=== PATIENT | female | born 1935 | race Caucasian/White ===

== ENCOUNTER 2018-02-23 22:44 | Emergency (ER) | payer MEDICARE ==
[~2018-02-23] VITALS: Ht 177.8 cm; Wt 59.0 kg
[2018-02-23] MEDS ORDERED: ATORVASTATIN CA20 MG ORAL (22:50)
[2018-02-23] MEDS ORDERED: CARVEDILOL3.125 MG ORAL (22:50)
[2018-02-23 23:06] VITALS: BP 140/59
--- NOTE | 2018-02-23 23:06 | Emergency Room Report ---
History of Present Illness General Chief Complaint: Multiple Trauma/Fall Source: Patient Present Illness [facility] This is an 82-year-old female with history of high blood pressure and hyperlipidemia. She presents with chief complaint of right knee/leg pain. Onset was acute. She tripped on a doggie blanket at the end of the bed around 2:30 PM this afternoon. She dragged herself into bed and been in bed since then. Complaining of pain to the back of the knee. Unable to bear weight. Pain is 8 out of 10 when she try to move. Better when she rest. No head injury. No loss of consciousness. Denies any other complaint. Pain is sharp. No radiation. Allergies: Coded Allergies: No Known Allergies (Unverified , 02/23/18) Patient History Past Medical History: see triage record, old chart reviewed, HTN Pertinent Family History: none Social History: Denies: smoking Last Menstrual Period: SHAMIKA Now: No Immunizations: other Reviewed Nursing Documentation: PMH: Agreed; PSxH: Agreed Nursing Documentation-PMH Past Medical History: No Stated History Hx Hypertension: Yes - HTN, HIGH MARIA T Review of Systems Eye: Denies: eye pain, blurred vision ENT: Denies: ear pain, nose congestion, throat swelling Respiratory: Denies: cough, shortness of breath Cardiovascular: Denies: chest pain, palpitations Gastrointestinal: Denies: abdominal pain, diarrhea, nausea, vomiting Musculoskeletal: Reports: joint pain; Denies: back pain Skin: Denies: rash Neurological: Denies: headache, numbness Endocrine: Denies: increased thirst, increased urine Hematologic/Lymphatic: Denies: easy bruising All Other Systems: negative except mentioned in HPI Physical Exam Vital Signs Date Time Temp Pulse Resp B/P (MAP) Pulse Ox O2 Delivery O2 Flow Rate FiO2 02/23/18 22:45 98.1 71 18 136/98 98 Room Air vitals normal Sp02 EP Interpretation: reviewed, normal General Appearance: well appearing, no apparent distress, alert Head: normocephalic, atraumatic Eyes: bilateral eye PERRL, bilateral eye EOMI ENT: hearing grossly normal, normal pharynx Neck: full range of motion, supple, no meningismus Respiratory: chest non-tender, lungs clear, normal breath sounds Cardiovascular #1: regular rate, rhythm, no murmur Gastrointestinal: normal bowel sounds, non tender, no mass, no organomegaly, no bruit, non-distended Musculoskeletal: back normal, other - Right knee: She has tenderness over the popliteal fossa area And distal femur. Knee is stable. Full range of motion. No deformity. Sensation normal. Neurologic: alert, oriented x3 Psychiatric: mood/affect normal Skin: warm/dry Medical Decision Making Diagnostic Impression: Primary Impression: Ambulatory dysfunction Additional Impressions: Leg pain, right Knee pain, right Qualified Codes: M25.561 - Pain in right knee Fall Qualified Codes: W19.XXXA - Unspecified fall, initial encounter ER Course Patient present with a mechanical fall. She has right leg pain over the femur and knee area. No fracture or dislocation. Most likely a sprain/soft tissue injury. No obvious muscle tear. Patient unable to bear weight and walk. Her daughter said that she cannot use crutches. She has a walker at home. Because she cannot bear weight and ambulate, will transfer to [facility] for physical therapy evaluation and possible skilled nursing placement versus wheelchair assistance. [facility] Results Impression labs unremarkable Other X-Ray Diagnostic Results Other X-Ray Diagnostic Results : X-Ray ordered: Right knee x-rays # of Views/Limited Vs Complete: 3 View Indication: Pain EP Interpretation: Yes Interpretation: no dislocation, no soft tissue swelling, no fractures, other - Degenerative changes Impression: No acute disease Electronically Signed by: Julian Monroe MD CT/MRI/US Diagnostic Results CT/MRI/US Diagnostic Results : Imaging Test Ordered: CT right femur Impression read by radiologist. No acute process. Last Vital Signs Date Time Temp Pulse Resp B/P (MAP) Pulse Ox O2 Delivery O2 Flow Rate FiO2 02/23/18 22:45 98.1 71 18 136/98 98 Room Air Status: improved Disposition: ER [facility] Condition: Stable Julian Monroe MD Feb 23, 2018 23:06
--- NOTE | 2018-02-23 23:38 | Diagnostic Imaging Report ---
EXAM: XR Right Knee, 2 views. CLINICAL HISTORY: TRAUMA COMPARISON: No relevant prior studies available. IMPRESSION: 2 views. Notch view and lateral view of the right knee. No acute fracture or dislocation is identified. Osteopenia. DJD. Vascular calcifications.
[2018-02-23] MEDS: Morphine Sulfate 2mg/ml Inj IVP ONE (23:59)
[2018-02-24 00:02] LABS: BASOPHILS % (AUTO) 0.8 % (0.0-2.0); EOSINOPHILS % (AUTO) 0.2 % (0.0-3.0); HEMATOCRIT 37.2 % (37.0-47.0); HEMOGLOBIN 13.6 G/DL (12.0-16.0); LYMPHOCYTES % (AUTO) 7.4 % (20.0-45.0); MEAN CORPUSCULAR VOLUME 101 FL (80-99); MONOCYTES % (AUTO) 9.1 % (1.0-10.0); NEUTROPHILS % (AUTO) 82.5 % (45.0-75.0); PLATELET COUNT 293 K/UL (150-450); RED BLOOD COUNT 3.69 M/UL (4.20-5.40); RED CELL DISTRIBUTION WIDTH 10.1 % (11.6-14.8); WHITE BLOOD COUNT 11.5 K/UL (4.8-10.8)
[2018-02-24 00:12] LABS: ANION GAP 12 mmol/L (5-15); BLOOD UREA NITROGEN 14 mg/dL (7-18); CALCIUM 9.6 MG/DL (8.5-10.1); CARBON DIOXIDE 26 MMOL/L (21-32); CHLORIDE 98 MMOL/L (98-107); CREATININE 0.7 MG/DL (0.55-1.30); POTASSIUM 4.3 MMOL/L (3.5-5.1); SODIUM 135 MMOL/L (136-145)
[2018-02-24 00:18] LABS: APPEARANCE,URINE CLEAR; BILIRUBIN, URINE NEGATIVE (NEGATIVE); COLOR,URINE PALE YELLOW; GLUCOSE, URINE (UA) NEGATIVE (NEGATIVE); KETONES,URINE 2+ (NEGATIVE); LEUKOCYTE ESTERASE ,URINE NEGATIVE (NEGATIVE); NITRITE,URINE NEGATIVE (NEGATIVE); PH,URINE 6 (4.5-8.0); PROTEIN,URINE NEGATIVE (NEGATIVE); UROBILINOGEN,URINE NORMAL MG/DL (0.0-1.0)
--- NOTE | 2018-02-24 01:10 | Diagnostic Imaging Report ---
EXAM: CT Right Lower Extremity Without Intravenous Contrast CLINICAL HISTORY: TRAUMA TECHNIQUE: Axial computed tomography images of the right lower extremity without intravenous contrast. CTDI is 5.61 mGy and DLP is 352.36 mGy-cm. One or more of the following dose reduction techniques were used: automated exposure control, adjustment of the mA and/or kV according to patient size, use of iterative reconstruction technique. COMPARISON: Plane film right knee same date FINDINGS: No acute fracture or dislocation. Degenerative changes. Small joint effusion at the right knee. Vascular calcifications. Intrapelvic contents are suboptimally evaluated as only bone windows presented. There is diverticulosis and suspected uterine fibroids as well as some nonspecific mildly distended small bowel loops with air- fluid levels. May represent ileus. No obstruction is suspected. IMPRESSION: No acute fracture or dislocation.
[2018-02-24 01:45] VITALS: BP 138/62
[2018-02-24 02:50] VITALS: BP 141/60
[2018-02-24 04:18] VITALS: BP 94/60
== END 2018-02-24 04:21 | disposition short-term general hospital (02) ==
LOC: EDBD 22:44 → EMR 23:03
DX: M25.561 Pain in right knee (principal); I10 Essential (primary) hypertension; E78.5 Hyperlipidemia, unspecified; W18.09XA Striking against other object with subsequent fall, initial encounter
CPT/HCPCS: 36415; 73560; 73700; 80048; 81001; 85025; 96374; 96375; 99285; J2270; J2405